=== PATIENT | male | born 1985 | race African-American/Black ===

== ENCOUNTER 2016-09-26 21:47 | Inpatient (IN) | payer OTHER ==
[~2016-09-26] VITALS: Ht 180.3 cm; Wt 139.0 kg
[2016-09-26 23:24] LABS: BASOPHILS % (AUTO) 0.5 % (0.0-2.0); EOSINOPHILS % (AUTO) 0.3 % (1.0-6.0); HEMATOCRIT 46.2 % (41-53); HEMOGLOBIN 15.1 g/dL (13.5-17.5); LYMPHOCYTES # (AUTO) 2.1 K/uL (1.0-4.8); LYMPHOCYTES % (AUTO) 21.7 % (22.0-44.0); MEAN CORPUSCULAR HEMOGLOBIN 28.7 pg (26.0-34.0); MEAN CORPUSCULAR HGB CONC 32.6 G/dL (31.0-37.0); MEAN CORPUSCULAR VOLUME 88 fL (80-100); MONOCYTES # (AUTO) 0.8 K/uL (0.1-1.0); MONOCYTES % (AUTO) 8.7 % (2.0-9.0); NEUTROPHILS # (AUTO) 6.6 K/uL (1.8-7.7); NEUTROPHILS % (AUTO) 68.8 % (40.0-70.0); PLATELET COUNT (AUTO) 362 K/uL (150-450); RED BLOOD CELL COUNT(AUTO) 5.25 MIL/uL (4.50-5.90); RED CELL DISTRIBUTION WIDTH 12.7 % (11.5-14.5); WHITE BLOOD COUNT (AUTO) 9.7 K/uL (4.5-11.0)
[2016-09-26 23:31] LABS: ANION GAP 7 mmol/L (8-16); CALCIUM, TOTAL 9.4 mg/dL (8.8-10.5); CARBON DIOXIDE 29 mmol/L (22-29); CHLORIDE 105 mmol/L (98-107); CREATININE 1.08 mg/dL (0.60-1.30); GLOMERULAR FILTR. RATE CALC > 60 mL/min (>60); POTASSIUM 3.9 mmol/L (3.5-5.1); SODIUM SERUM 141 mmol/L (136-145); UREA NITROGEN, BLOOD 12 mg/dL (7-18)
[2016-09-26 23:32] LABS: PROTHROMBIN TIME 10.6 SEC (9.4-11.6)
[2016-09-26 23:37] LABS: ALANINE AMINOTRANSFERASE 39 U/L (12-78); ALBUMIN 3.8 g/dL (3.4-5.0); ASPARTATE AMINOTRANSFERASE 45 U/L (15-37); BILIRUBIN,TOTAL 0.6 mg/dL (0.1-1.0); TOTAL PROTEIN, SERUM 7.8 g/dL (6.4-8.2)
[2016-09-27] MEDS ORDERED: NITROGLYCERIN 2% (1 GM=INCH) PACKET TP ONE
[2016-09-27] MEDS ORDERED: ASPIRIN 81 MG CHEWABLE TABLET PO ONE
[2016-09-27] MEDS ORDERED: ALBUTEROL SULFATE 2.5 MG/0.5 ML NEB SOLUTION NEB PRN (00:15)
[2016-09-27] MEDS ORDERED: ACETAMINOPHEN 325 MG TABLET PO PRN (00:15)
[2016-09-27] MEDS ORDERED: ZOLPIDEM TARTRATE 10 MG TABLET PO PRN (00:15)
[2016-09-27] MEDS ORDERED: LEVOFLOXACIN 750 MG/D5% WATER 150 ML IV ONE (00:30)
[2016-09-27] MEDS: LEVOFLOXACIN 500 MG/D5% WATER 100 ML IV SCH ×2 (00:50→23:36)
[2016-09-27] MEDS: ALBUTEROL SULFATE 2.5 MG/0.5 ML NEB SOLUTION NEB SCH ×4 (02:00→23:01)
[2016-09-27 02:15] VITALS: BP 135/72
[2016-09-27] MEDS ORDERED: PNEUMOCOCCAL VACCINE POLYVALENT 0.5 ML VIAL [PPSV23] IM ONE (03:45)
[2016-09-27] MEDS ORDERED: INFLUENZA VIRUS VACCINE QVS 2016-17 (3YR+)/PF 60 MCG/0.5 ML SYRINGE IM ONE (03:45)
[2016-09-27 07:58] VITALS: BP 132/71
[2016-09-27] MEDS ORDERED: 0.9% SODIUM CHLORIDE 5 ML NEB SOLUTION NEB ONE ×3 (08:17→19:53)
[2016-09-27] MEDS: PANTOPRAZOLE SODIUM 40 MG DR TABLET PO SCH (09:19)
[2016-09-27 12:02] VITALS: BP 153/76
[2016-09-27 15:18] VITALS: BP 109/55
[2016-09-27] MEDS: OxyCODONE HCL/ACETAMINOPHEN 5-325 MG TABLET PO PRN (18:46)
[2016-09-27 19:30] VITALS: BP 107/56
[2016-09-27 23:14] VITALS: BP 135/71
[2016-09-27] MEDS ORDERED: SODIUM CHLORIDE 0.9% 500 ML IV ONE (23:27)
[2016-09-28] MEDS ORDERED: 0.9% SODIUM CHLORIDE 5 ML NEB SOLUTION NEB ONE ×4 (02:12→19:41)
[2016-09-28] MEDS: ALBUTEROL SULFATE 2.5 MG/0.5 ML NEB SOLUTION NEB SCH ×4 (02:41→19:47)
[2016-09-28 04:39] VITALS: BP 134/59
[2016-09-28 07:37] VITALS: BP 123/73
[2016-09-28] MEDS: PANTOPRAZOLE SODIUM 40 MG DR TABLET PO SCH (08:42)
[2016-09-28 11:22] VITALS: BP 162/89
[2016-09-28 15:44] VITALS: BP 153/80
[2016-09-28] MEDS: OxyCODONE HCL/ACETAMINOPHEN 5-325 MG TABLET PO PRN ×2 (15:47→20:23)
[2016-09-28 19:29] VITALS: BP 147/80
[2016-09-28 23:05] VITALS: BP 119/66
[2016-09-29] MEDS: ALBUTEROL SULFATE 2.5 MG/0.5 ML NEB SOLUTION NEB SCH ×5 (02:00→20:02)
[2016-09-29] MEDS ORDERED: 0.9% SODIUM CHLORIDE 5 ML NEB SOLUTION NEB ONE ×4 (02:34→19:57)
[2016-09-29 04:18] VITALS: BP 149/57
[2016-09-29 07:06] VITALS: BP 141/63
[2016-09-29] MEDS: PANTOPRAZOLE SODIUM 40 MG DR TABLET PO SCH (08:18)
[2016-09-29 11:06] VITALS: BP 119/60
[2016-09-29 16:32] VITALS: BP 136/63
[2016-09-29 19:11] VITALS: BP 149/76
[2016-09-29 23:24] VITALS: BP 135/79
[2016-09-30 04:53] VITALS: BP 125/85
[2016-09-30] MEDS: PANTOPRAZOLE SODIUM 40 MG DR TABLET PO SCH (06:21)
[2016-09-30 08:11] VITALS: BP 126/75
[2016-09-30] MEDS ORDERED: 0.9% SODIUM CHLORIDE 5 ML NEB SOLUTION NEB ONE (08:17)
[2016-09-30] MEDS: ALBUTEROL SULFATE 2.5 MG/0.5 ML NEB SOLUTION NEB SCH (08:28)
== END 2016-09-30 10:55 | disposition home or self-care (01) | DRG 139 ==
LOC: EMS 21:48 → 6N 09-27 00:15
PROVIDERS: ADMIT Hospitalist; ATTEND Hospitalist
DX: J18.9 Pneumonia, unspecified organism (principal); E44.0 Moderate protein-calorie malnutrition; Z68.41 Body mass index [BMI] 40.0-44.9, adult; I48.91 Unspecified atrial fibrillation; F17.210 Nicotine dependence, cigarettes, uncomplicated; E66.01 Morbid (severe) obesity due to excess calories; I51.7 Cardiomegaly; J02.9 Acute pharyngitis, unspecified; J45.909 Unspecified asthma, uncomplicated; Z86.14 Personal history of Methicillin resistant Staphylococcus aureus infection
CPT/HCPCS: 71020; 71250; 85379; 87015; 87040; 90471; 93005; 94640; 96372; 99285; 99406; J1956; J7040

== ENCOUNTER 2017-01-26 15:53 | Emergency (ER) | payer OTHER ==
[~2017-01-26] VITALS: Ht 180.3 cm; Wt 135.4 kg
[2017-01-26 19:47] LABS: BASOPHILS % (AUTO) 0.9 % (0.0-2.0); EOSINOPHILS % (AUTO) 1.5 % (1.0-6.0); HEMOGLOBIN 14.5 g/dL (13.5-17.5); LYMPHOCYTES # (AUTO) 1.9 K/uL (1.0-4.8); LYMPHOCYTES % (AUTO) 25.1 % (22.0-44.0); MEAN CORPUSCULAR HEMOGLOBIN 29.5 pg (26.0-34.0); MEAN CORPUSCULAR HGB CONC 33.8 G/dL (31.0-37.0); MEAN CORPUSCULAR VOLUME 87 fL (80-100); MONOCYTES # (AUTO) 0.6 K/uL (0.1-1.0); NEUTROPHILS # (AUTO) 4.9 K/uL (1.8-7.7); NEUTROPHILS % (AUTO) 64.5 % (40.0-70.0); PLATELET COUNT (AUTO) 356 K/uL (150-450); RED BLOOD CELL COUNT(AUTO) 4.92 MIL/uL (4.50-5.90); RED CELL DISTRIBUTION WIDTH 13.4 % (11.5-14.5); WHITE BLOOD COUNT (AUTO) 7.6 K/uL (4.5-11.0)
[2017-01-26 19:56] LABS: ADD UA MICROSCOPIC YES; APPEARANCE,URINE CLEAR (CLEAR); GLUCOSE, URINE (UA) NEGATIVE (NEGATIVE); KETONES,URINE NEGATIVE (NEGATIVE); LEUKOCYTE ESTERASE ,URINE NEGATIVE (NEGATIVE); OCCULT BLOOD,URINE TRACE (NEGATIVE); PROTEIN,URINE NEGATIVE (NEGATIVE); SQUAMOUS EPITHELIAL CELL,UR Rare /LPF (None Seen); WBC,URINE 0-2 /HPF (0-5)
[2017-01-26 20:00] LABS: ANION GAP 9 mmol/L (8-16); CALCIUM, TOTAL 9.4 mg/dL (8.8-10.5); CARBON DIOXIDE 26 mmol/L (22-29); CHLORIDE 103 mmol/L (98-107); CREATININE 1.09 mg/dL (0.60-1.30); GLOMERULAR FILTR. RATE CALC > 60 mL/min (>60); POTASSIUM 3.8 mmol/L (3.5-5.1); SODIUM SERUM 138 mmol/L (136-145); UREA NITROGEN, BLOOD 11 mg/dL (7-18)
[2017-01-26] MEDS ORDERED: LORazepam 2 MG/ML VIAL IM ONE (20:00)
[2017-01-26] MEDS ORDERED: DEXAMETHASONE SOD PHOS 4 MG/ML 5 ML VIAL IM ONE (20:00)
[2017-01-26] MEDS ORDERED: MORPHINE SULFATE 10 MG/ML SYRINGE IM ONE (20:00)
[2017-01-26 20:06] LABS: ALANINE AMINOTRANSFERASE 46 U/L (12-78); ALBUMIN 3.7 g/dL (3.4-5.0); ASPARTATE AMINOTRANSFERASE 36 U/L (15-37); BILIRUBIN,TOTAL 0.3 mg/dL (0.1-1.0); TOTAL PROTEIN, SERUM 7.2 g/dL (6.4-8.2)
[2017-01-26 20:50] VITALS: BP 141/72
== END 2017-01-26 21:16 | disposition home or self-care (01) ==
LOC: EMS 15:54
DX: S39.012A Strain of muscle, fascia and tendon of lower back, initial encounter (principal); F17.210 Nicotine dependence, cigarettes, uncomplicated; J45.909 Unspecified asthma, uncomplicated; X58.XXXA Exposure to other specified factors, initial encounter; Y93.89 Activity, other specified; Y92.89 Other specified places as the place of occurrence of the external cause; Y99.9 Unspecified external cause status
CPT/HCPCS: 36415; 80053; 81001; 83690; 85025; 96372; 99284; J1100; J2060; J2270

== ENCOUNTER 2017-11-15 00:23 | Emergency (ER) | payer OTHER ==
[~2017-11-15] VITALS: Ht 180.3 cm; Wt 131.8 kg
[2017-11-15 03:09] VITALS: BP 145/88
== END 2017-11-15 03:11 | disposition home or self-care (01) ==
LOC: EMS 00:24
DX: S86.912A Strain of unspecified muscle(s) and tendon(s) at lower leg level, left leg, initial encounter (principal); J45.909 Unspecified asthma, uncomplicated; F17.210 Nicotine dependence, cigarettes, uncomplicated; X58.XXXA Exposure to other specified factors, initial encounter; Y93.B9 Activity, other involving muscle strengthening exercises; Y92.89 Other specified places as the place of occurrence of the external cause; Y99.8 Other external cause status
CPT/HCPCS: 29505; 99283

== ENCOUNTER 2018-10-05 03:09 | Emergency (ER) | payer OTHER ==
[~2018-10-05] VITALS: Ht 190.5 cm; Wt 138.6 kg
[2018-10-05] MEDS ORDERED: PRED10 PO (03:27)
[2018-10-05] MEDS ORDERED: MONT10TA21 PO (03:27)
[2018-10-05] MEDS ORDERED: LEVO500 PO (03:27)
[2018-10-05] MEDS ORDERED: BECL10.6 IH (03:27)
[2018-10-05] MEDS: ALBUTEROL SULFATE 2.5 MG/0.5 ML NEB SOLUTION NEB ONE (04:13)
[2018-10-05] MEDS: IPRATROPIUM BROMIDE 0.5 MG/2.5 ML NEB SOLUTION NEB ONE (04:13)
[2018-10-05] MEDS: ALBUTEROL SULFATE HFA 90 MCG/PUFF 8 GM INHALER IH ONE (04:24)
[2018-10-05] MEDS: BENZONATATE 100 MG CAPSULE PO ONE (04:27)
[2018-10-05 04:35] VITALS: BP 148/83
== END 2018-10-05 04:40 | disposition home or self-care (01) ==
LOC: EMS 03:11
DX: J40 Bronchitis, not specified as acute or chronic (principal); F17.210 Nicotine dependence, cigarettes, uncomplicated
CPT/HCPCS: 94640; J3535

== ENCOUNTER 2018-11-15 04:17 | Emergency (ER) | payer OTHER ==
[~2018-11-15] VITALS: Ht 180.3 cm; Wt 140.9 kg
[~2018-11-15 04:17] MED LIST: BECL10.6 IH; LEVO500 PO; MONT10TA21 PO; PRED10 PO
[2018-11-15] MEDS ORDERED: ALBU8HFA IH (04:27)
[2018-11-15] MEDS ORDERED: IBUPROFEN 600 MG TABLET PO ONE (06:15)
[2018-11-15 06:16] VITALS: BP 132/86
== END 2018-11-15 07:01 | disposition home or self-care (01) ==
LOC: EMS 04:20
DX: S83.8X2A Sprain of other specified parts of left knee, initial encounter (principal); F17.210 Nicotine dependence, cigarettes, uncomplicated; Z79.899 Other long term (current) drug therapy; X50.1XXA Overexertion from prolonged static or awkward postures, initial encounter; Y93.67 Activity, basketball; Y92.310 Basketball court as the place of occurrence of the external cause; Y99.8 Other external cause status
CPT/HCPCS: 99406

== ENCOUNTER 2022-07-19 23:55 | Emergency (ER) | payer OTHER ==
[~2022-07-19] VITALS: Ht 182.9 cm; Wt 154.6 kg
[~2022-07-19 23:55] MED LIST changes: +ALBU8HFA IH; -LEVO500 PO; +MONT-35 PO; -MONT10TA21 PO; -PRED10 PO
[2022-07-20] MEDS ORDERED: MORPHINE SULFATE 2 MG/ML SYRINGE IVP ONE (00:30)
[2022-07-20] MEDS ORDERED: SODIUM CHLORIDE 0.9% 1,000 ML IV ONE (00:30)
[2022-07-20] MEDS ORDERED: KETOROLAC TROMETHAMINE 30 MG/ML VIAL IVP ONE (00:30)
[2022-07-20] MEDS ORDERED: ONDANSETRON HCL 4 MG/2 ML VIAL IVP ONE (00:30)
[2022-07-20 01:01] LABS: BASOPHILS % (AUTO) 0.3 % (0.0-2.0); EOSINOPHILS % (AUTO) 0.4 % (1.0-6.0); HEMATOCRIT 44.4 % (41-53); HEMOGLOBIN 15.2 g/dL (13.5-17.5); LYMPHOCYTES # (AUTO) 0.6 K/uL (1.0-4.8); LYMPHOCYTES % (AUTO) 9.3 % (22.0-44.0); MEAN CORPUSCULAR HEMOGLOBIN 29.2 pg (26.0-34.0); MEAN CORPUSCULAR HGB CONC 34.1 G/dL (31.0-37.0); MEAN CORPUSCULAR VOLUME 86 fL (80-100); MONOCYTES # (AUTO) 0.6 K/uL (0.1-1.0); MONOCYTES % (AUTO) 9.1 % (2.0-9.0); NEUTROPHILS % (AUTO) 80.9 % (40.0-70.0); PLATELET COUNT (AUTO) 341 K/uL (150-450); RED BLOOD CELL COUNT(AUTO) 5.19 MIL/uL (4.50-5.90); RED CELL DISTRIBUTION WIDTH 13.1 % (11.5-14.5)
[2022-07-20 01:10] LABS: ANION GAP 3 mmol/L (8-16); CALCIUM, TOTAL 8.8 mg/dL (8.8-10.5); CARBON DIOXIDE 28 mmol/L (22-29); CHLORIDE 99 mmol/L (98-107); CREATININE 1.12 mg/dL (0.60-1.30); GLUCOSE,RANDOM 95 mg/dL (70-110); POTASSIUM 3.9 mmol/L (3.5-5.1); SODIUM SERUM 130 mmol/L (136-145); UREA NITROGEN, BLOOD 14 mg/dL (7-18)
[2022-07-20 01:13] LABS: GLOMERULAR FILTR. RATE CALC > 60 mL/min (>60)
[2022-07-20 01:15] LABS: ALANINE AMINOTRANSFERASE 33 U/L (12-78); ALBUMIN 3.6 g/dL (3.4-5.0); ALKALINE PHOSPHATASE 64 U/L (46-116); ASPARTATE AMINOTRANSFERASE 30 U/L (15-37); BILIRUBIN,TOTAL 0.8 mg/dL (0.1-1.0); LIPASE 58 U/L (73-393); TOTAL PROTEIN, SERUM 7.6 g/dL (6.4-8.2)
[2022-07-20 03:15] LABS: COVID AG,FIA SOURCE NASOPHARYNGEAL
[2022-07-20 03:50] LABS: INFLUENZA TYPE A NEGATIVE FOR TYPE A (NEGATIVE); INFLUENZA TYPE B NEGATIVE FOR TYPE B (NEGATIVE)
[2022-07-20] MEDS ORDERED: ONDA-104 PO (05:10)
[2022-07-20 05:28] VITALS: BP 148/70
== END 2022-07-20 05:29 | disposition home or self-care (01) ==
LOC: EMS 23:56
DX: R10.30 Lower abdominal pain, unspecified (principal); K52.9 Noninfective gastroenteritis and colitis, unspecified; F17.210 Nicotine dependence, cigarettes, uncomplicated; Z86.14 Personal history of Methicillin resistant Staphylococcus aureus infection; Z20.822 Contact with and (suspected) exposure to COVID-19
CPT/HCPCS: 99285; 87426; 80053; 83690; 85025; 87804; 36415; 74177; 96374; 96375; 96361; G0480; J1885; J2270; J2405; J7030

== ENCOUNTER 2022-11-20 02:48 | Emergency (ER) | payer OTHER ==
[~2022-11-20] VITALS: Ht 182.9 cm; Wt 154.6 kg
[~2022-11-20 02:48] MED LIST changes: +ALBU18HF12 IH; -ALBU8HFA IH; +ONDA-104 PO
[2022-11-20 02:59] VITALS: BP 123/56
[2022-11-20] MEDS ORDERED: AMLO10TA55 PO (03:03)
[2022-11-20] MEDS ORDERED: POLY510P31 PO (03:03)
[2022-11-20] MEDS ORDERED: PARO-37 PO (03:03)
[2022-11-20 05:23] LABS: COVID AG,FIA SOURCE NASOPHARYNGEAL
[2022-11-20 05:48] LABS: INFLUENZA TYPE A NEGATIVE FOR TYPE A (NEGATIVE); INFLUENZA TYPE B NEGATIVE FOR TYPE B (NEGATIVE)
== END 2022-11-20 06:42 | disposition home or self-care (01) ==
LOC: EMS 02:49
DX: R09.81 Nasal congestion (principal); F17.210 Nicotine dependence, cigarettes, uncomplicated; F12.90 Cannabis use, unspecified, uncomplicated; F14.90 Cocaine use, unspecified, uncomplicated; Z20.822 Contact with and (suspected) exposure to COVID-19
CPT/HCPCS: 87430; 87804; 99283

== ENCOUNTER 2024-01-22 02:16 | Emergency (ER) | payer OTHER ==
[~2024-01-22] VITALS: Ht 180.3 cm; Wt 154.6 kg
[~2024-01-22 02:16] MED LIST changes: +AMLO10TA55 PO; +PARO-37 PO; +POLY510P31 PO
[2024-01-22 02:23] VITALS: TEMP 97.8
[2024-01-22] MEDS ORDERED: LORA-1000 PO (02:59)
[2024-01-22 03:00] VITALS: BP 147/85; PULSE 82; RESP 18
== END 2024-01-22 03:13 | disposition home or self-care (01) ==
LOC: EMS 02:16
DX: F41.9 Anxiety disorder, unspecified (principal); I10 Essential (primary) hypertension; F17.210 Nicotine dependence, cigarettes, uncomplicated; F12.90 Cannabis use, unspecified, uncomplicated
CPT/HCPCS: 93005; 99284; Z7502